=== PATIENT | female | born 1955 | race Native Hawaiian/Other Pacific Islander ===

== ENCOUNTER 2018-12-17 07:43 | Day surgery (SDC) | payer BC ==
[2018-12-17 08:25] LABS: PLATELET COUNT 272 K/uL (152-353)
[2018-12-17 08:31] LABS: POTASSIUM 3.8 mmol/L (3.6-5.2)
== END 2018-12-17 11:20 | disposition home or self-care (01) ==
LOC: OR 07:43
PROVIDERS: Pain Medicine Interventional Pain Medicine
PROC: 0DBP8ZZ Excision of Rectum, Via Natural or Artificial Opening Endoscopic (ICD-10-PCS; principal; 2018-12-17)
DX: K57.30 Diverticulosis of large intestine without perforation or abscess without bleeding (principal); D12.8 Benign neoplasm of rectum; Z12.11 Encounter for screening for malignant neoplasm of colon
CPT/HCPCS: 80053; 84443; 85027; J2001; J2250; J2405; J2704

== ENCOUNTER 2019-01-29 08:26 | Outpatient (CLI) | payer BC | END 2019-01-29 19:49 | disposition home or self-care (01) | LOC: US 08:26 | DX: Z82.49 Family history of ischemic heart disease and other diseases of the circulatory system (principal) ==

== ENCOUNTER 2019-11-18 12:26 | Inpatient (IN) | payer BC, OTHER ==
[2019-11-18] VITALS (7 sets, daily range): BP systolic 87–160; BP diastolic 50–70; TEMP 97.5–98.6; Ht 172.7 cm; Wt 98.9 kg
[~2019-11-18] VITALS: Ht 172.7 cm; Wt 98.9 kg
[2019-11-18] MEDS ORDERED: PANTOPRAZOLE 40MG TA PO (15:31)
[2019-11-18] MEDS ORDERED: LEVO0.1224 PO (15:33)
[2019-11-18] MEDS ORDERED: PAROXETINE10 MG PO (15:34)
[2019-11-18 15:42] LABS: POTASSIUM 3.9 mmol/L (3.6-5.2); SODIUM 140 mmol/L (136-145)
[2019-11-18 16:14] LABS: PLATELET COUNT 236 K/uL (152-353)
[2019-11-19] VITALS (10 sets, daily range): BP systolic 126–153; BP diastolic 67–76; TEMP 97–98.1
[2019-11-19 10:01] LABS: PLATELET COUNT 236 K/uL (152-353)
[2019-11-19 13:15] LABS: POTASSIUM 4.2 mmol/L (3.6-5.2)
== END 2019-11-19 19:54 | disposition short-term general hospital (02) | DRG 177 ==
LOC: RAD 12:26 → MED/SURG 13:47
PROVIDERS: ADMIT Student in an Organized Health Care Education/Training Program
DX: U07.1 COVID-19 (principal); J18.8 Other pneumonia, unspecified organism; E03.8 Other specified hypothyroidism; R19.7 Diarrhea, unspecified
CPT/HCPCS: 36415; 36600; 80053; 81000; 82550; 82728; 82805; 83615; 83735; 84484; 85027; 85379; 86140; 86900; 86901; 87635; 93005; 94760; J0456; J0696; J1100; J1650; J1885; J1940; J2405; P9017; U0003

== ENCOUNTER 2019-12-17 14:15 | Inpatient (IN) | payer BC, OTHER ==
[~2019-12-17] VITALS: Ht 172.7 cm; Wt 95.8 kg
[~2019-12-17 14:15] MED LIST: LEVO0.1224 PO; PANTOPRAZOLE 40MG TA PO; PAROXETINE10 MG PO
[2019-12-17 15:44] VITALS: BP 135/76; TEMP 97.7; Ht 172.7 cm; Wt 95.8 kg
[2019-12-17 20:00] VITALS: BP 121/69; TEMP 98.1
[2019-12-18 20:00] VITALS: BP 117/56; TEMP 98.6
[2019-12-19 08:00] VITALS: BP 113/58; TEMP 98
[2019-12-19 20:56] VITALS: BP 105/58; TEMP 98.6
[2019-12-20 08:00] VITALS: BP 106/56; TEMP 98.5
[2019-12-20 13:56] LABS: POTASSIUM 3.8 mmol/L (3.6-5.2)
[2019-12-20 14:36] LABS: PLATELET COUNT 514 K/uL (152-353)
[2019-12-20 20:01] VITALS: BP 104/54; TEMP 97.8
[2019-12-21 08:00] VITALS: BP 112/55; TEMP 98.5
[2019-12-21 21:36] VITALS: BP 103/55; TEMP 98.8
[2019-12-22 08:00] VITALS: BP 103/55; TEMP 98.1
[2019-12-22 20:00] VITALS: BP 113/59; TEMP 98.3
[2019-12-23 08:00] VITALS: BP 107/52; TEMP 98.9
[2019-12-23 20:00] VITALS: BP 104/61; TEMP 98.8
[2019-12-24 20:00] VITALS: BP 105/48; TEMP 98.4
[2019-12-25 08:00] VITALS: BP 106/62; TEMP 98.3
[2019-12-25 20:00] VITALS: BP 107/54; TEMP 98
[2019-12-26 08:00] VITALS: BP 105/55; TEMP 98.1
[2019-12-26 20:00] VITALS: BP 109/50; TEMP 98.8
[2019-12-27 08:00] VITALS: BP 166/71; TEMP 97.7
[2019-12-27 20:00] VITALS: BP 98/52; TEMP 98.3
[2019-12-28 08:00] VITALS: BP 110/56; TEMP 97.9
[2019-12-28 20:00] VITALS: BP 111/59; TEMP 97.6
[2019-12-29 08:00] VITALS: BP 109/58; TEMP 98.3
[2019-12-29] MEDS ORDERED: FURO40TA93 PO (08:02)
[2019-12-29] MEDS ORDERED: ERGOCALCIF50000 UNIT PO (08:04)
[2019-12-29] MEDS ORDERED: METO-837 PO (08:12)
[2019-12-29] MEDS ORDERED: TOPAMAX25 MG PO (08:13)
[2019-12-29] MEDS ORDERED: HYDR-3182 PO (08:13)
[2019-12-29] MEDS ORDERED: CYCL10TA35 PO (08:21)
== END 2019-12-29 11:40 | disposition home or self-care (01) | DRG 948 ==
LOC: MED/SURG 14:15
PROVIDERS: ADMIT Internal Medicine Endocrinology, Diabetes & Metabolism
DX: R53.1 Weakness (principal); N39.0 Urinary tract infection, site not specified; Z86.19 Personal history of other infectious and parasitic diseases; R62.7 Adult failure to thrive; E03.8 Other specified hypothyroidism; F32.89 Other specified depressive episodes; I10 Essential (primary) hypertension; B96.20 Unspecified Escherichia coli [E. coli] as the cause of diseases classified elsewhere; M62.838 Other muscle spasm; R26.89 Other abnormalities of gait and mobility; R09.02 Hypoxemia
CPT/HCPCS: 36415; 80053; 81000; 82550; 84484; 85007; 85027; 87077; 87081; 87086; 87088; 87186; 93005; 94760

== ENCOUNTER 2020-01-08 12:15 | Outpatient (CLI) | payer BC, OTHER ==
[~2020-01-08 12:15] MED LIST changes: +CYCL10TA35 PO; +ERGOCALCIF50000 UNIT PO; +FURO40TA93 PO; +HYDR-3182 PO; +METO-837 PO; +TOPAMAX25 MG PO
== END 2020-01-08 22:22 | disposition home or self-care (01) ==
LOC: US 12:15
PROVIDERS: ATTEND Student in an Organized Health Care Education/Training Program
DX: R74.8 Abnormal levels of other serum enzymes (principal); R06.00 Dyspnea, unspecified; R53.1 Weakness; U07.1 COVID-19; R53.83 Other fatigue; R00.0 Tachycardia, unspecified; E03.9 Hypothyroidism, unspecified; R58 Hemorrhage, not elsewhere classified

== ENCOUNTER 2020-07-19 12:44 | Outpatient (CLI) | payer BC | END 2020-07-19 22:07 | disposition home or self-care (01) | LOC: RAD 12:44 | PROVIDERS: ATTEND Student in an Organized Health Care Education/Training Program | DX: R06.00 Dyspnea, unspecified (principal); Z86.16 Personal history of COVID-19; R58 Hemorrhage, not elsewhere classified ==